=== PATIENT | female | born 1970 | race Caucasian/White ===

== ENCOUNTER 2018-06-16 14:05 | Emergency (ER) | payer MEDICAID ==
--- NOTE | 2018-06-16 14:52 | ER Document Report ---
ED Medical Screen (RME) - General Chief Complaint: Abdominal Pain Stated Complaint: ABDOMINAL PAIN Time Seen by Provider: 06/16/18 14:46 Mode of Arrival: Ambulatory Information source: Patient Notes: Resents to the emergency department sent over by*medical for abdominal pain. Reports flank pain but she is had that pain for years is just worse recently with abdominal pain. She also reports right upper quad abdominal pain for the past 2 weeks worse after she eats. Also reports lower abdominal pain pressure and increased urination denies pain with void. Patient does have history of high blood pressure diabetes. I have greeted and performed a rapid initial assessment of this patient. A comprehensive ED assessment and evaluation of the patient, analysis of test results and completion of the medical decision making process will be conducted by additional ED providers. Dictation of this chart was performed using voice recognition software; therefore, there may be some unintended grammatical errors. TRAVEL OUTSIDE OF THE [place] IN LAST 30 DAYS: No - Related Data Allergies/Adverse Reactions: No Known Allergies Allergy (Verified 06/16/18 14:06) Past Medical History - Past Medical History Cardiac Medical History: Reports: Hx Hypercholesterolemia, Hx Hypertension Endocrine Medical History: Reports: Hx Diabetes Mellitus Type 2 Renal/ Medical History: Denies: Hx Peritoneal Dialysis Past Surgical History: Reports: Hx Tubal Ligation - Immunizations Hx Diphtheria, Pertussis, Tetanus Vaccination: Yes Physical Exam - Vital signs Vitals: Temp Pulse Resp BP Pulse Ox 98 F 70 18 175/93 H 97 06/16/18 14:18 06/16/18 14:18 06/16/18 14:18 06/16/18 14:18 06/16/18 14:18 Course - Vital Signs Vital signs: Temp Pulse Resp BP Pulse Ox 98 F 70 18 175/93 H 97 06/16/18 14:18 06/16/18 14:18 06/16/18 14:18 06/16/18 14:18 06/16/18 14:18
[2018-06-16 15:25] LABS: ABSOLUTE BASOPHILS # (AUTO) 0.1 10^3/uL (0.0-0.2); ABSOLUTE EOSINOPHILS # (AUTO) 0.3 10^3/uL (0.0-0.6); ABSOLUTE LYMPHOCYTES (AUTO) 2.7 10^3/uL (0.5-4.7); ABSOLUTE MONOCYTES (AUTO) 0.4 10^3/uL (0.1-1.4); ABSOLUTE NEUT (AUTO) 5.9 10^3/uL (1.7-8.2); APPEARANCE,URINE SLIGHTLY-CLOUDY; BASOPHILS % (AUTO) 1.1 % (0-2); BILIRUBIN,URINE NEGATIVE (NEGATIVE); COLOR,URINE YELLOW; EOSINOPHILS % (AUTO) 3.1 % (0-6); GLUCOSE, URINE NEGATIVE (NEGATIVE); HEMATOCRIT 46.6 % (36.0-47.0); KETONES,URINE NEGATIVE (NEGATIVE); LEUKOCYTE ESTERASE,URINE NEGATIVE (NEGATIVE); LYMPHOCYTES % (AUTO) 28.6 % (13-45); MEAN CORPUSCULAR HEMOGLOBIN 28.2 pg (27.0-33.4); MEAN CORPUSCULAR HGB CONC 34.3 g/dL (32.0-36.0); MEAN CORPUSCULAR VOLUME 82 fl (80-97); MONOCYTES % (AUTO) 4.7 % (3-13); NITRITE,URINE NEGATIVE (NEGATIVE); PLATELET COUNT 241 10^3/uL (150-450); PROTEIN,URINE 100 mg/dL (NEGATIVE); RED BLOOD COUNT 5.67 10^6/uL (3.72-5.28); RED CELL DISTRIBUTION WIDTH 13.1 % (11.5-14.0); SEGMENTED NEUTROPHILS % (AUTO) 62.5 % (42-78); TOTAL CELLS COUNTED % (AUTO) 100 %; URINE SPECIFIC GRAVITY 1.018; UROBILINOGEN,URINE NEGATIVE mg/dL (<2.0); WHITE BLOOD COUNT 9.5 10^3/uL (4.0-10.5)
[2018-06-16 15:44] LABS: ALANINE AMINOTRANSFERASE 42 U/L (9-52); ALBUMIN 4.4 g/dL (3.5-5.0); ALKALINE PHOSPHATASE 75 U/L (38-126); AMYLASE 45 U/L (30-110); ANION GAP 11 (5-19); ASPARTATE AMINO TRANSFERASE 33 U/L (14-36); BILIRUBIN,DIRECT 0.3 mg/dL (0.0-0.4); BILIRUBIN,TOTAL 0.9 mg/dL (0.2-1.3); BLOOD UREA NITROGEN 15 mg/dL (7-20); CALCIUM 10.3 mg/dL (8.4-10.2); CARBON DIOXIDE 25 mmol/L (22-30); CHLORIDE 102 mmol/L (98-107); GLUCOSE 227 mg/dL (75-110); LIPASE 182.4 U/L (23-300); POTASSIUM 4.2 mmol/L (3.6-5.0); SODIUM 138.2 mmol/L (137-145); TOTAL PROTEIN 7.5 g/dL (6.3-8.2)
--- NOTE | 2018-06-16 15:53 | RADIOLOGY REPORT (SQ) ---
EXAM DESCRIPTION: U/S ABDOMEN LIMITED W/O DOP COMPLETED DATE/TIME: 06/16/2018 3:36 pm REASON FOR STUDY: ruq abd pain COMPARISON: None. TECHNIQUE: Dynamic and static grayscale images acquired of the abdomen and recorded on PACS. Additio nal selected color Doppler and spectral images recorded. LIMITATIONS: None. FINDINGS: PANCREAS: No masses. Visualized pancreatic duct normal caliber. LIVER: Fatty liver. The liver measures 22.5 cm in length, hepatomegaly. LIVER VASCULATURE: Normal directional flow of the main portal vein and hepatic veins. GALLBLADDER: No stones. The gallbladder wall measures 1.2 mm, normal wall thickness. No pericholecys tic fluid. ULTRASOUND-DETECTED MAIER'S SIGN: Negative. INTRAHEPATIC DUCTS AND COMMON DUCT: CBD measures 6.0 mm in diameter, upper limits of normal. The in trahepatic ducts normal caliber. No filling defects. INFERIOR VENA CAVA: Normal flow. AORTA: No aneurysm. RIGHT KIDNEY: The right kidney measures 12.0 cm x 5.8 x 5.6 cm, normal size. Normal echogenicity. No solid or suspicious masses. No hydronephrosis. No calcifications. PERITONEAL AND RIGHT PLEURAL SPACE: No ascites or effusions. OTHER: A well-circumscribed echogenic mass in the right adrenal gland measures 4.0 x 4.0 x 4.3 cm. This finding may represent an adrenal adenoma. The CT examination dated 11/25/2014 demonstrated a rig ht adrenal adenoma(please see report). IMPRESSION: 1. Fatty liver. Hepatomegaly. 2. A well-circumscribed echogenic nodule in the region of the right adrenal gland, may represent an adenoma. The CT examination dated 11/25/2014 demonstrated a right adrenal adenoma which was smaller in size than the measurement on the ultrasound study. Correlation suggested and further evaluation w ith follow-up CT examination if clinically indicated. TECHNICAL DOCUMENTATION: JOB ID: [id number] [employer]- All Rights Reserved Reading location - IP/workstation name: [email or web address]
[2018-06-16] MEDS ORDERED: KETOROLAC TROMETHAMINE INJ/PF 30 MG/1 ML SDV IV ONE (16:07)
[2018-06-16] MEDS ORDERED: NORMAL SALINE 1000 ML 1,000 ML IV ONE (16:07)
--- NOTE | 2018-06-16 19:50 | RADIOLOGY REPORT (SQ) ---
EXAM DESCRIPTION: CT ABD/PELVIS WITH IV ORAL COMPLETED DATE/TIME: 06/16/2018 7:08 pm REASON FOR STUDY: severe abd pain COMPARISON: None. TECHNIQUE: CT scan of the abdomen and pelvis performed using helical scanning technique with dynamic intravenous contrast injection. Oral contrast. Images reviewed with lung, soft tissue, and bone win dows. Reconstructed coronal and sagittal MPR images reviewed. Delayed images for evaluation of the ur inary system also acquired. All images stored on PACS. All CT scanners at this facility use dose modulation, iterative reconstruction, and/or weight based d osing when appropriate to reduce radiation dose to as low as reasonably achievable (ALARA). [facility]: Dose Right [facility]: CareDose [facility]: Dose Right [facility]: Teradose 4D [facility]: Buzzilla CONTRAST TYPE AND DOSE: contrast/concentration: Isovue 350.00 mg/ml; Total Contrast Delivered: 100.0 ml; Total Saline Delivered: 41.2 ml RENAL FUNCTION: None required. The patient is less than 50 years old. RADIATION DOSE: CT Rad equipment meets quality standard of care and radiation dose reduction techniq ues were employed. CTDIvol: 17.0 - 19.4 mGy. DLP: 1887 mGy-cm.. LIMITATIONS: None. FINDINGS: LOWER CHEST: No significant findings. No nodules or infiltrates. LIVER: The liver is uniformly hypoattenuating. There is no mass. SPLEEN: Normal size. No focal lesions. PANCREAS: No masses. No significant calcifications. No adjacent inflammation or peripancreatic fluid collections. Pancreatic duct not dilated. GALLBLADDER: No identified stones by CT criteria. No inflammatory changes to suggest cholecystitis. ADRENAL GLANDS: There is a heterogeneous, predominantly fat density 4.5 cm right adrenal mass. RIGHT KIDNEY AND URETER: No solid masses. No significant calcifications. No hydronephrosis or hyd roureter. LEFT KIDNEY AND URETER: No solid masses. No significant calcifications. No hydronephrosis or hydr oureter. AORTA AND VESSELS: No aneurysm. No dissection. Renal arteries, SMA, celiac without stenosis. RETROPERITONEUM: No retroperitoneal adenopathy, hemorrhage or masses. BOWEL AND PERITONEAL CAVITY: No masses or inflammatory changes. No free fluid or peritoneal masses. APPENDIX: Normal. PELVIS: Nabothian cyst. No pelvic mass or fluid collection. ABDOMINAL WALL: No masses. No hernias. BONES: No significant or acute findings. OTHER: No other significant finding. IMPRESSION: Fatty liver. 4.5 cm right adrenal mass is predominantly fat density, suggesting an jonathon sharri. There is a nabothian cyst. No other significant findings in the abdomen or pelvis. TECHNICAL DOCUMENTATION: JOB ID: [id number] Quality ID # [id number]: Final reports with documentation of one or more dose reduction techniques (e.g., Au tomated exposure control, adjustment of the mA and/or kV according to patient size, use of iterative reconstruction technique) 2010 [employer]- All Rights Reserved Reading location - IP/workstation name: [email or web address]
[2018-06-16] MEDS ORDERED: DIAZEPAM INJ 10 MG/2 ML DISP.SYRIN IV ONE (20:39)
--- NOTE | 2018-06-16 20:43 | ER Document Report ---
Addendum entered and electronically signed by CHASITY JONES NP 06/17/18 10:06: Course - Re-evaluation Re-evalutation: 06/17/18 10:05 Martin Murray called to confirm patient's prescriptions and the instructions. Confirmed that Levsin was written as 3 times a day as AC and that the diazepam could be filled as an oral tablet. - Vital Signs Vital signs: Temp Pulse Resp BP Pulse Ox 97.6 F 72 20 152/102 H 94 06/16/18 21:01 06/16/18 21:01 06/16/18 21:01 06/16/18 21:01 06/16/18 21:01 - Laboratory Result Diagrams: 06/16/18 15:00 06/16/18 15:00 Laboratory results interpreted by me: 06/16/18 06/16/18 06/16/18 15:00 15:00 15:00 RBC 5.67 H Hgb 16.0 H Glucose 227 H Calcium 10.3 H Urine Protein 100 H Urine Blood SMALL H Original Note: ED GI/ - General Mode of Arrival: Ambulatory Information source: Patient, [facility] Records TRAVEL OUTSIDE OF THE [place] IN LAST 30 DAYS: No <JASSI WARE T - Last Filed: 06/16/18 20:35> <CHASITY JONES - Last Filed: 06/17/18 10:05> <CORTNEY ROMERO - Last Filed: 06/17/18 13:50> - General Chief Complaint: Abdominal Pain Stated Complaint: ABDOMINAL PAIN Time Seen by Provider: 06/16/18 14:46 Primary Care Provider: LEESA SINGLETARY MD [ACTIVE STAFF] - Follow up as needed Notes: Patient is a 48-year-old morbidly obese [facility] of right upper quad pain. Patient states she has had this pain off and on for the past 2 weeks. She states is not getting any better. Also tells us that she is not eating or drinking very well. She states when she eats she feels like she is going to explode because she gets so bloated. She states she has been having regular bowel movements and last one was this morning and normal for her. She denies any diarrhea or constipation. She also tells me that she has a history of an adrenal adenoma on her left side that was surgically removed. She also tells me that she was informed she had a small one on her right side as well that if she had a problem with this she would be in serious trouble. Patient denies any chest pain or shortness of breath and her pain is diffuse on her abdomen but more centered on the right upper quadrant. (JASSI WARE) - Related Data Allergies/Adverse Reactions: No Known Allergies Allergy (Verified 06/16/18 14:06) Past Medical History - General Information source: Patient - Social History Smoking Status: Current Every Day Smoker Cigarette use (# per day): Yes - Half a pack a day Chew tobacco use (# tins/day): No Smoking Education Provided: Yes Frequency of alcohol use: None Drug Abuse: None - So were basically taken balloons now scheduled for 3 months Lives with: Family Family History: Reviewed & Not Pertinent, Hypertension Patient has suicidal ideation: No Patient has homicidal ideation: No - Past Medical History Cardiac Medical History: Reports: Hx Hypercholesterolemia, Hx Hypertension Endocrine Medical History: Reports: Hx Diabetes Mellitus Type 2 Renal/ Medical History: Denies: Hx Peritoneal Dialysis Past Surgical History: Reports: Hx Tubal Ligation - Immunizations Hx Diphtheria, Pertussis, Tetanus Vaccination: Yes <JASSI WARE - Last Filed: 06/16/18 20:35> Review of Systems - Review of Systems Constitutional: No symptoms reported EENT: No symptoms reported Cardiovascular: No symptoms reported Respiratory: No symptoms reported Gastrointestinal: See HPI, Abdominal pain Genitourinary: No symptoms reported Female Genitourinary: No symptoms reported Musculoskeletal: No symptoms reported Skin: No symptoms reported Hematologic/Lymphatic: No symptoms reported Neurological/Psychological: No symptoms reported -: Yes All other systems reviewed and negative <JASSI WARE - Last Filed: 06/16/18 20:35> Physical Exam - Vital signs Interpretation: Hypertensive <JASSI WARE - Last Filed: 06/16/18 20:35> - Vital signs Vitals: Temp Pulse Resp BP Pulse Ox 98.0 F 72 18 175/93 H 96 06/16/18 14:17 06/16/18 14:17 06/16/18 14:17 06/16/18 14:17 06/16/18 14:17 - Notes Notes: PHYSICAL EXAMINATION: GENERAL: Well-appearing, well-nourished and in no acute distress. Uncomfortable appearing HEAD: Atraumatic, normocephalic. EYES: Pupils equal round and reactive to light, extraocular movements intact, conjunctiva are normal. ENT: Nares patent, oropharynx clear without exudates. Moist mucous membranes. NECK: Normal range of motion, supple without lymphadenopathy LUNGS: Breath sounds clear to auscultation bilaterally and equal. No wheezes rales or rhonchi. HEART: Regular rate and rhythm without murmurs ABDOMEN: Physical exam of patient's abdomen was very difficult. Patient appears to be somewhat distended auscultation of her abdomen shows bowel sounds to be decreased throughout but present in all 4 quads. Palpation of her left lower quad showed minimal amount of tenderness as did percussion. Her left upper quad was a little more tender to palpation and to percussion right lower quadrant again increasing amount of discomfort and pain to palpation and percussion the r ight upper quad was exquisite pain to light palpation and percussion. Examination of that area put patient into tears with guarding prominent. Further physical examination with patient sitting up and percussion to her right side showed patient to be in tears abundantly crying. Again reexamination of the abdomen showed voluntary and involuntary guarding. Patient distracted and still guarding. Female : deferred Musculoskeletal: Normal range of motion, no pitting or edema. No cyanosis. NEUROLOGICAL: Cranial nerves grossly intact. Normal speech, normal gait. Normal sensory, motor exams PSYCH: Normal mood, normal affect. SKIN: Warm, Dry, normal turgor, no rashes or lesions noted. (JASSI WARE) Course - Laboratory Result Diagrams: 06/16/18 15:00 06/16/18 15:00 <JASSI WARE - Last Filed: 06/16/18 20:35> - Laboratory Result Diagrams: 06/16/18 15:00 06/16/18 15:00 <CORTNEY ROMERO - Last Filed: 06/17/18 13:50> - Re-evaluation Re-evalutation: 06/16/18 20:[address] Romero also come over and take a look at patient examiner. Patient was much better after receiving the fluids and ketorolac which she raved about. Dr. Romero physical exam was much more nontraumatic than mine patient stated the pain was 75% better and she had no reason as to why she was so tender before. Ultrasound was negative the CT with IV and p.o. contrast was negative except for the adenoma. At this point Dr. Romero felt this might be a more muscular sure kind of a presentation with her having spasms in the abdominal muscles so we will treat her with some Valium tonight and send her home on Valium twice daily 06/16/18 20:[address] Romero's examination further examination by me and I had with the nurse present patient exposed the area on the right side of around her breast and right upper quadrant make sure we were not missing a presentation of shingles and patient's presentation had no rash and no light sensitivity to touch. Therefore I do not believe this was a shingles presentation as well. (JASSI WARE) 06/17/18 13:47 Patient was evaluated as requested by [facility]. Patient has had right upper quadrant and mid back pain. Patient has not had any associated nausea, vomiting. CT of the abdomen as well as ultrasound were obtained and within normal limits. Patient does appear uncomfortable but does not appear in distress. Patient did receive Toradol, IV fluids and upon my exam states that she is feeling better. Unclear what is causing the patient's abdominal pain but with normal lab work, imaging and a relatively benign exam I believe patient can be discharged home with close follow-up. PHYSICAL EXAMINATION: GENERAL: Well-appearing, well-nourished and in no acute distress. HEAD: Atraumatic, normocephalic. EYES: Pupils equal round extraocular movements intact, conjunctiva are normal. ENT: Nares patent NECK: Normal range of motion LUNGS: No respiratory distress Musculoskeletal: Normal range of motion. Reproducible pain with side bending, twisting. Increased muscle tonicity along the right paraspinal musculature. NEUROLOGICAL: Normal speech, normal gait. PSYCH: Normal mood, normal affect. SKIN: Warm, Dry, normal turgor, no rashes or lesions noted. (CORTNEY ROMERO) - Vital Signs Vital signs: Temp Pulse Resp BP Pulse Ox 97.6 F 72 20 152/102 H 94 06/16/18 21:01 06/16/18 21:01 06/16/18 21:01 06/16/18 21:01 06/16/18 21:01 - Laboratory Laboratory results interpreted by me: 06/16/18 06/16/18 06/16/18 15:00 15:00 15:00 RBC 5.67 H Hgb 16.0 H Glucose 227 H Calcium 10.3 H Urine Protein 100 H Urine Blood SMALL H Discharge <JASSI WARE - Last Filed: 06/16/18 20:35> <CHASITY JONES - Last Filed: 06/17/18 10:05> <CORTNEY ROMERO - Last Filed: 06/17/18 13:50> - Discharge Clinical Impression: Spasm of abdominal muscles of right side Abdominal pain Qualifiers: Abdominal location: generalized Qualified Code(s): R10.84 - Generalized abdominal pain Condition: Good Disposition: HOME, SELF-CARE Instructions: Abdominal Pain ([facility]), Antinausea Medication ([facility]), Antispasmodics ([facility]), Oral Narcotic Medication ([facility]), Toradol Injection ([facility]) Additional Instructions: Home and rest. As we discussed at this point your CT is normal your labs look good you do need to follow-up with your primary doctor for referral to a specialist for the pituitary adenoma. This is not something is causing her pain discomfort however. Should you spike a fever the pain get worse return to ER for recheck however the follow-up is going to be important with your primary doctor. Prescriptions: RX: Diazepam 5 mg PO BID PRN #12 tab PRN Reason: Hyoscyamine Sulfate [Levsin 0.125 Tablet] 0.125 mg PO AC PRN #30 tablet PRN Reason: Forms: Smoking Cessation Education, Elevated Blood Pressure Referrals: LEESA SINGLETARY MD [ACTIVE STAFF] - Follow up as needed
[2018-06-16 21:20] VITALS: BP 152/102
== END 2018-06-16 21:19 | disposition home or self-care (01) ==
LOC: ER 14:05
DX: M62.838 Other muscle spasm (principal); R10.84 Generalized abdominal pain; M54.9 Dorsalgia, unspecified; E66.01 Morbid (severe) obesity due to excess calories; F17.210 Nicotine dependence, cigarettes, uncomplicated; I10 Essential (primary) hypertension; E11.9 Type 2 diabetes mellitus without complications
CPT/HCPCS: 99284; 96361; 96374; 96375; 36415; 82150; 83690; 85025; 81025; 80053; 81001; 76705; 74177; J3360; J1885; J7030

== ENCOUNTER → 2018-07-21 | Outpatient (CLI) | payer MEDICAID ==
--- NOTE | 2018-07-21 11:35 | WOMENS IMAGING REPORT ---
EXAM DESCRIPTION: BILAT SCREENING MAMMO W/CAD COMPLETED DATE/TIME: 07/21/2018 10:39 am REASON FOR STUDY: Z12.31 ROUTINE BILATERAL SCREENING Z12.31 ENCNTR SCREEN MAMMOGRAM FOR MALIGNANT N EOPLASM OF MAURO COMPARISON: None. EXAM PARAMETERS: Standard craniocaudal and mediolateral oblique views of each breast recorded using digital acquisition. Read with the assistance of CAD. .[employer] Version 9.2 LIMITATIONS: None. FINDINGS: No suspicious masses, suspicious calcifications or architectural distortion. No areas of s uspicion. IMPRESSION: ASSESSMENT: Negative MAMMOGRAM. BIRADS 1 BREAST DENSITY: b. There are scattered areas of fibroglandular density. BIRAD: 1 NEGATIVE RECOMMENDATION: ROUTINE SCREENING COMMENT: The patient has been notified of the results by letter per MQSA requirements. Additional no tification policies are in place for contacting patient with suspicious or incomplete findings. Quality ID #[id number]: The [employer] recommends an annual screening mammogram for women aged 40 years or over. This facility utilizes a reminder system to ensure that all patients receive reminder letters, and/or direct phone calls for appointments. This includes reminders for routine scr eening mammograms, diagnostic mammograms, or other Breast Imaging Interventions when appropriate. Th is patient will be placed in the appropriate reminder system. TECHNICAL DOCUMENTATION: FINDING NUMBER: (1) ASSESSMENT: (1) JOB ID: [id number] [employer]- All Rights Reserved Reading location - IP/workstation name: [email or web address]
== END ==
LOC: WI 10:12
PROVIDERS: ATTEND Family Medicine
DX: Z12.31 Encounter for screening mammogram for malignant neoplasm of breast (principal)
CPT/HCPCS: 77067

== ENCOUNTER → 2018-10-28 | Outpatient (CLI) | payer MEDICAID ==
--- NOTE | 2018-10-28 14:38 | RADIOLOGY REPORT (SQ) ---
EXAM DESCRIPTION: T SPINE AP/LAT COMPLETED DATE/TIME: 10/28/2018 2:15 pm REASON FOR STUDY: PAIN IN THORACIC SPINE R07.81 PLEURODYNIA M54.6 PAIN IN THORACIC SPINE COMPARISON: None. NUMBER OF VIEWS: Two views. TECHNIQUE: AP and lateral radiographic images acquired of the thoracic spine. LIMITATIONS: None. FINDINGS: MINERALIZATION: Normal. ALIGNMENT: Mild scoliosis convex right thoracic. VERTEBRAE: No fracture or bone lesion. Maintained height, normal segmentation. DISCS: Multilevel osteophytes and degenerative disc disease. No dominant level. HARDWARE: None in the spine. MEDIASTINUM AND SOFT TISSUES: Normal heart size and aortic contour. No soft tissue abnormality. VISUALIZED LUNG THOMAS: Clear. OTHER: No other significant finding. IMPRESSION: Mild scoliosis. Mild diffuse degenerative disc disease. TECHNICAL DOCUMENTATION: JOB ID: [id number] [employer]- All Rights Reserved Reading location - IP/workstation name: [email or web address]
--- NOTE | 2018-10-28 14:39 | RADIOLOGY REPORT (SQ) ---
EXAM DESCRIPTION: RIBS RIGHT W/PA CHEST COMPLETED DATE/TIME: 10/28/2018 2:15 pm REASON FOR STUDY: PLEURODYNIA R07.81 PLEURODYNIA M54.6 PAIN IN THORACIC SPINE COMPARISON: None. TECHNIQUE: Frontal view of the chest and additional views of the right ribs acquired. NUMBER OF VIEWS: Five view. LIMITATIONS: None. FINDINGS: FRONTAL CXR: No pneumothorax. No pleural effusion. No atelectasis or infiltrates. RIBS: No displaced rib fractures. No lytic or blastic bony lesions. OTHER: Bone infarct right proximal humerus. IMPRESSION: NO PNEUMOTHORAX. NO DISPLACED RIB FRACTURES. COMMENT: SITE OF TRAUMA/COMPLAINT MARKED/STAMP COMPLETED: Yes TECHNICAL DOCUMENTATION: JOB ID: [id number] [employer]- All Rights Reserved Reading location - IP/workstation name: [email or web address]
== END ==
LOC: OD 13:55
PROVIDERS: ATTEND Family Medicine
DX: R07.81 Pleurodynia (principal); M51.34 Other intervertebral disc degeneration, thoracic region; M41.84 Other forms of scoliosis, thoracic region
CPT/HCPCS: 72070

== ENCOUNTER → 2020-01-23 | Outpatient (CLI) | payer MEDICAID ==
--- NOTE | 2020-01-23 12:09 | RADIOLOGY REPORT (SQ) ---
EXAM DESCRIPTION: C SP 4 OR 5 VIEWS IMAGES COMPLETED DATE/TIME: 01/23/2020 11:04 am REASON FOR STUDY: RADICULOPATHY, CERVICAL REGION M25.511 PAIN IN RIGHT SHOULDER M54.12 RADICULOPAT HY, CERVICAL REGION COMPARISON: None. NUMBER OF VIEWS: Five views. TECHNIQUE: AP, lateral, obliques and odontoid radiographic images acquired of the cervical spine. LIMITATIONS: None. FINDINGS: MINERALIZATION: Normal. ALIGNMENT: Anatomic. VERTEBRAE: Vertebral bodies of normal height. DISCS: Small anterior osteophytes. Disc height maintained. FORAMINA: Evaluation on the right is limited due to patient positioning. LATERAL AND POSTERIOR ELEMENTS: Facets, lateral masses and spinous processes without significant find ings. HARDWARE: None in the spine. SOFT TISSUES: No masses or calcifications. Lung apices clear. OTHER: No other significant finding. IMPRESSION: 1. No acute osseous changes. 2. Evaluation of the right neural foramina limited by patient positioning. TECHNICAL DOCUMENTATION: JOB ID: [id number] 2010 [employer]- All Rights Reserved Reading location - IP/workstation name: [email or web address]
--- NOTE | 2020-01-23 12:27 | RADIOLOGY REPORT (SQ) ---
EXAM DESCRIPTION: SHOULDER RIGHT 2 OR MORE VIEWS IMAGES COMPLETED DATE/TIME: 01/23/2020 11:04 am REASON FOR STUDY: RIGHT SHOULDER PAIN, UNSPECIFIED CHRONICITY M25.511 PAIN IN RIGHT SHOULDER M54.12 RADICULOPATHY, CERVICAL REGION COMPARISON: None. NUMBER OF VIEWS: Three views. TECHNIQUE: Internal rotation, external rotation, and Y view images acquired of the right shoulder. LIMITATIONS: None. FINDINGS: MINERALIZATION: Normal. BONES: No fracture or dislocation. 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 GLENOHUMERAL JOINT: No significant findings. ACROMIOCLAVICULAR JOINT: No large osteophytes. SOFT TISSUES: No calcifications. VISUALIZED RIBS, SPINE, AND LUNG: No other significant finding. OTHER: No other significant finding. IMPRESSION: NEGATIVE STUDY OF THE RIGHT SHOULDER. NO EXPLANATION FOR PAIN. TECHNICAL DOCUMENTATION: JOB ID: [id number] 2010 [employer]- All Rights Reserved Reading location - IP/workstation name: [email or web address]
== END ==
LOC: OD 10:32
PROVIDERS: ATTEND Family Medicine
DX: M25.511 Pain in right shoulder (principal); M54.12 Radiculopathy, cervical region
CPT/HCPCS: 72050